=== PATIENT | female | born 1995 | race Caucasian/White ===

== ENCOUNTER 2023-09-02 14:48 | Emergency (ER) | payer OTHER ==
[~2023-09-02] VITALS: Ht 154.9 cm; Wt 81.6 kg
[2023-09-02] MEDS ORDERED: METFORMIN HCL1000 M1 PO (15:09)
[2023-09-02] MEDS ORDERED: Lidocaine Hydrochloride 2% 10 ML AMP SC ONE (15:20)
[2023-09-02] MEDS ORDERED: Tdap Vaccine 0.5 ML SYR (Adult Vaccine) IM ONE (15:20)
[2023-09-02] MEDS ORDERED: Bacitracin Zinc 14 GM TUBE T ONE (15:20)
[2023-09-02] MEDS ORDERED: CEPHALEXIN500 M1 PO (16:38)
[2023-09-02] MEDS ORDERED: CEPHALEXIN 500 MG CAP PO ONE (16:40)
== END 2023-09-02 16:50 | disposition home or self-care (01) ==
LOC: ED 14:48
DX: S91.115A Laceration without foreign body of left lesser toe(s) without damage to nail, initial encounter (principal); W22.8XXA Striking against or struck by other objects, initial encounter; Y93.89 Activity, other specified; Y92.89 Other specified places as the place of occurrence of the external cause; Y99.8 Other external cause status